=== PATIENT | female | born 1985 | race Caucasian/White ===

== ENCOUNTER 2023-02-26 10:47 | Emergency (ER) | payer BC ==
[2023-02-26] MEDS ORDERED: Fluorescein Opthalmic Strip ONE (11:33)
[2023-02-26] MEDS ORDERED: Proparacaine 0.5% Opth 15 ML BOT ONE (11:33)
== END 2023-02-26 12:18 | disposition home or self-care (01) ==
LOC: ERS 10:47
DX: H20.00 Unspecified acute and subacute iridocyclitis (principal)
CPT/HCPCS: 99282